=== PATIENT | male | born 2000 | race African-American/Black ===

== ENCOUNTER 2019-09-01 19:06 | Emergency (ER) | payer OTHER ==
[~2019-09-01] VITALS: Ht 165.1 cm; Wt 72.6 kg
[2019-09-01 19:52] LABS: ABSOLUTE NEUTROPHILS 2.7 thou/uL (1.4-8.2); BASOPHILS 0.5 % (0.0-2.0); EOSINOPHILS 0.4 % (0.0-3.0); HEMATOCRIT 42.6 % (42.0-52.0); LYMPHOCYTES 34.9 % (24.0-44.0); MCH 27.3 pg (26.0-34.0); MCHC 32.7 g/dL (28.0-37.0); MCV 83.5 fL (80.0-100.0); MONOCYTES 7.6 % (1.0-8.0); PLATELET COUNT 146 thou/uL (150-400); POLYS 56.6 % (36.0-66.0); RBC 5.11 mil/uL (4.50-6.00); WBC 4.7 thou/uL (4.0-11.0)
[2019-09-01 20:03] LABS: ANION GAP 9 mmol/L (7-16); BUN 11 mg/dL (7-18); CALCIUM 9.3 mg/dL (8.5-10.1); CHLORIDE 102 mmol/L (98-107); CO2 26 mmol/L (21-32); GLUCOSE 99 mg/dL (74-106); POTASSIUM 3.8 mmol/L (3.5-5.1); SODIUM 137 mmol/L (136-145)
[2019-09-01 20:13] LABS: ALBUMIN 3.7 g/dL (3.4-5.0); SGOT 22 U/L (15-37); SGPT 34 U/L (30-65); TOTAL BILIRUBIN 0.4 mg/dL (0.2-1.0); TOTAL PROTEIN 7.3 g/dL (6.4-8.2); TROPONIN-I <0.06 ng/mL (<0.06)
[2019-09-01] MEDS ORDERED: TORADOL 10 MG T10 MG PO (20:27)
[2019-09-01 20:49] VITALS: BP 129/70
--- NOTE | 2019-09-02 07:53 | EKG ---
[facility] [place] [address] ELECTROCARDIOGRAM REPORT Name: PRISCILLA BONILLA Room #: DEP [facility].#: [id number] Admission: 09/01/19 Attend Phys: Discharge: 09/01/19 Date of : [birth year] Report #: [id number] THIS REPORT FOR: cc: NEVAEH - Michelle family physician/PCP NEVAEH - Michelle family physician/PCP Gallito Ruiz MD [facility] THIS REPORT FOR: //name// [facility] ED Test Date: 2019-09-01 Test Time: 19:18:48 Pat Name: PRISCILLA BONILLA Department: Room: Gender: Automation Clerk: [facility] : 2000 Requested By: John Alvarez Order Number: [id number] MD: Gallito Ruiz Measurements Intervals [place] Rate: 55 P: 45 FL: 131 QRS: 10 QRSD: 82 T: 28 QT: 420 QTc: 402 Interpretive Statements Sinus bradycardia Otherwise normal tracing No previous ECG available for comparison Electronically Signed On 09-02-2019 7:52:50 CDT by Gallito Ruiz [email or web address] <ELECTRONICALLY SIGNED> By: Gallito Ruiz MD, FAC 09/02/19 0752 17 17 Gallito Ruiz MD, [facility] /EPI
== END 2019-09-01 20:50 | disposition home or self-care (01) ==
LOC: ER 19:06
PROVIDERS: Physician Assistant
DX: R09.1 Pleurisy (principal); M54.6 Pain in thoracic spine; J45.909 Unspecified asthma, uncomplicated; Z96.21 Cochlear implant status